=== PATIENT | female | born 1940 | race Caucasian/White ===

== ENCOUNTER 2018-05-21 12:11 | Outpatient (REF) | payer MEDICARE, OTHER, SELFPAY ==
[2018-05-21 21:43] LABS: ALT 19 U/L (12-78); Anion Gap 9.2 mmol/L (3-11); BUN 35 mg/dL (7-18); CO2 22.8 mmol/L (21.0-32.0); CREATININE 2.16 mg/dL (0.55-1.02); Chloride 107 mmol/L (98-107); Estimated GFR 22.23 (mL/min/1.73m2); Glucose 245 mg/dL (70-100); Potassium 5.1 mmol/L (3.5-5.1); Sodium 139 mmol/L (136-145)
== END 2018-05-21 12:31 ==
LOC: NCHCN 12:11
PROVIDERS: PCP Family Medicine; Visit Provider Family Medicine
DX: E78.5 Hyperlipidemia, unspecified (principal); I10 Essential (primary) hypertension
CPT/HCPCS: 80048; 84460

== ENCOUNTER 2018-11-17 21:41 | Outpatient (REF) | payer MEDICARE, OTHER, SELFPAY ==
[2018-11-17 22:42] LABS: Anion Gap 8.7 mmol/L (3-11); BUN 35 mg/dL (7-18); CO2 22.3 mmol/L (21.0-32.0); Calcium 10.8 mg/dL (8.5-10.1); Chloride 107 mmol/L (98-107); Glucose 230 mg/dL (70-100); PHOSPHORUS 3.2 mg/dL (2.6-4.7); Potassium 5.6 mmol/L (3.5-5.1); Sodium 138 mmol/L (136-145)
== END 2018-11-17 22:01 ==
LOC: NCHCN 21:41
PROVIDERS: PCP Family Medicine; Visit Provider Family Medicine
DX: N18.4 Chronic kidney disease, stage 4 (severe) (principal)
CPT/HCPCS: 80048; 84100

== ENCOUNTER 2019-06-11 22:17 | Outpatient (REF) | payer MEDICARE, OTHER, SELFPAY ==
[2019-06-11 21:45] LABS: Anion Gap 9.7 mmol/L (3-11); BUN 43 mg/dL (7-18); CO2 22.3 mmol/L (21.0-32.0); CREATININE 2.27 mg/dL (0.55-1.02); Calcium 10.5 mg/dL (8.5-10.1); Chloride 107 mmol/L (98-107); Estimated GFR 20.88 (mL/min/1.73m2); Glucose 214 mg/dL (74-106); PHOSPHORUS 3.8 mg/dL (2.6-4.7); Potassium 5.6 mmol/L (3.5-5.1); Sodium 139 mmol/L (136-145)
== END 2019-06-11 22:37 ==
LOC: NCHCN 22:17
PROVIDERS: PCP Family Medicine; Visit Provider Family Medicine
DX: E11.8 Type 2 diabetes mellitus with unspecified complications (principal); I10 Essential (primary) hypertension; N18.4 Chronic kidney disease, stage 4 (severe)
CPT/HCPCS: 80048; 84100

== ENCOUNTER 2019-11-19 14:17 | Outpatient (REF) | payer MEDICARE, OTHER, SELFPAY ==
[2019-11-19 21:34] LABS: ALT 26 U/L (14-59); AST 22 U/L (15-37); Alkaline Phosphatase 122 U/L (46-116); Anion Gap 9.4 mmol/L (3-11); BUN 33 mg/dL (7-18); Bilirubin, Total 0.3 mg/dL (0.2-1.0); CO2 21.6 mmol/L (21.0-32.0); CREATININE 1.87 mg/dL (0.55-1.02); Calcium 11.4 mg/dL (8.5-10.1); Calculated LDL 47 mg/dL (<100); Chloride 109 mmol/L (98-107); Cholesterol 144 mg/dL (<200); Estimated GFR 26.11 (mL/min/1.73m2); Glucose 169 mg/dL (74-106); HDL Cholesterol 46 mg/dL (40-60); Sodium 140 mmol/L (136-145); Total Protein 7.1 g/dL (6.4-8.2); Triglyceride 259 mg/dL (<150)
[2019-11-19 21:42] LABS: Potassium 6.3 mmol/L (3.5-5.1)
== END 2019-11-19 14:37 ==
LOC: NCHCN 14:17
PROVIDERS: PCP Family Medicine; Visit Provider Family Medicine
DX: N18.4 Chronic kidney disease, stage 4 (severe) (principal)
CPT/HCPCS: 80053; 80061

== ENCOUNTER 2019-11-25 22:24 | Outpatient (REF) | payer MEDICARE, OTHER, SELFPAY ==
[2019-11-25 20:48] LABS: Anion Gap 9.4 mmol/L (3-11); BUN 45 mg/dL (7-18); CO2 21.6 mmol/L (21.0-32.0); CREATININE 2.21 mg/dL (0.55-1.02); Calcium 11.4 mg/dL (8.5-10.1); Chloride 108 mmol/L (98-107); Estimated GFR 21.53 (mL/min/1.73m2); Glucose 85 mg/dL (74-106); Potassium 5.5 mmol/L (3.5-5.1); Sodium 139 mmol/L (136-145)
== END 2019-11-25 22:44 ==
LOC: NCHCN 22:24
PROVIDERS: PCP Family Medicine; Visit Provider Registered Nurse
DX: E87.5 Hyperkalemia (principal)
CPT/HCPCS: 80048

== ENCOUNTER 2020-01-04 08:29 | Outpatient (REF) | payer MEDICARE, OTHER, SELFPAY ==
[2020-01-04 22:05] LABS: Anion Gap 10.2 mmol/L (3-11); BUN 37 mg/dL (7-18); CO2 22.8 mmol/L (21.0-32.0); CREATININE 2.02 mg/dL (0.55-1.02); Calcium 10.9 mg/dL (8.5-10.1); Chloride 106 mmol/L (98-107); Estimated GFR 23.88 (mL/min/1.73m2); Glucose 231 mg/dL (74-106); Potassium 4.9 mmol/L (3.5-5.1); Sodium 139 mmol/L (136-145)
== END 2020-01-04 08:49 ==
LOC: NCHCN 08:29
PROVIDERS: PCP Family Medicine; Visit Provider Family Medicine
DX: E87.5 Hyperkalemia (principal); E11.8 Type 2 diabetes mellitus with unspecified complications; E83.52 Hypercalcemia; N18.4 Chronic kidney disease, stage 4 (severe)
CPT/HCPCS: 80048

== ENCOUNTER 2020-09-27 14:52 | Outpatient (REF) | payer MEDICARE, OTHER, SELFPAY ==
[2020-09-27 15:29] LABS: ALT 27 U/L (14-59); AST 20 U/L (15-37); Albumin 3.7 g/dL (3.4-5.0); Alkaline Phosphatase 181 U/L (46-116); Anion Gap 13.1 mmol/L (3-11); BUN 65 mg/dL (7-18); Bilirubin, Total 0.4 mg/dL (0.2-1.0); CO2 20.9 mmol/L (21.0-32.0); CREATININE 3.4 mg/dL (0.55-1.02); Calcium 10.5 mg/dL (8.5-10.1); Calculated LDL 53 mg/dL (<100); Chloride 105 mmol/L (98-107); Cholesterol 140 mg/dL (<200); Estimated GFR 13.06 (mL/min/1.73m2); Glucose 333 mg/dL (74-106); HDL Cholesterol 39 mg/dL (40-60); Potassium 5.6 mmol/L (3.5-5.1); Sodium 139 mmol/L (136-145); Total Protein 6.8 g/dL (6.4-8.2); Triglyceride 243 mg/dL (<150)
== END 2020-09-27 14:53 | disposition home or self-care (01) ==
LOC: NCHCN 14:52
PROVIDERS: PCP Family Medicine; Visit Provider Family Medicine
DX: E78.5 Hyperlipidemia, unspecified (principal); N18.4 Chronic kidney disease, stage 4 (severe); I10 Essential (primary) hypertension
CPT/HCPCS: 80053; 80061

== ENCOUNTER 2020-11-29 14:58 | Outpatient (REF) | payer MEDICARE, OTHER, SELFPAY ==
[2020-11-28 13:25] LABS: Anion Gap 11.8 mmol/L (3-11); BUN 41 mg/dL (7-18); CO2 20.2 mmol/L (21.0-32.0); CREATININE 2.6 mg/dL (0.55-1.02); Calcium 10.8 mg/dL (8.5-10.1); Chloride 108 mmol/L (98-107); Glucose 198 mg/dL (74-106); Sodium 140 mmol/L (136-145)
== END 2020-11-29 14:59 | disposition home or self-care (01) ==
LOC: NCHCN 14:58
PROVIDERS: PCP Family Medicine; Visit Provider Family Medicine
DX: E87.5 Hyperkalemia (principal)
CPT/HCPCS: 80048

== ENCOUNTER 2021-05-24 09:27 | Outpatient (REF) | payer MEDICARE, OTHER, SELFPAY ==
[2021-05-24 16:45] LABS: Anion Gap 10.1 mmol/L (3-11); BUN 49 mg/dL (7-18); CO2 20.9 mmol/L (21.0-32.0); CREATININE 2.5 mg/dL (0.55-1.02); Calcium 10.6 mg/dL (8.5-10.1); Chloride 106 mmol/L (98-107); Estimated GFR 18.63 (mL/min/1.73m2); Glucose 223 mg/dL (74-106); Potassium 4.8 mmol/L (3.5-5.1); Sodium 137 mmol/L (136-145)
== END 2021-05-24 09:28 | disposition home or self-care (01) ==
LOC: NCHCN 09:27
PROVIDERS: PCP Family Medicine; Visit Provider Family Medicine
DX: N18.4 Chronic kidney disease, stage 4 (severe) (principal)
CPT/HCPCS: 80048

== ENCOUNTER 2022-06-04 16:19 | Outpatient (REF) | payer MEDICARE, OTHER, SELFPAY ==
[2022-06-04 16:00] LABS: Anion Gap 8.9 mmol/L (3-11); BUN 30 mg/dL (7-18); CO2 21.1 mmol/L (21.0-32.0); CREATININE 2.4 mg/dL (0.55-1.02); Calcium 10.9 mg/dL (8.5-10.1); Chloride 108 mmol/L (98-107); Estimated GFR 19.92 (mL/min/1.73m2); Glucose 313 mg/dL (74-106); PHOSPHORUS 3.1 mg/dL (2.6-4.7); Potassium 5.6 mmol/L (3.5-5.1); Sodium 138 mmol/L (136-145)
== END 2022-06-04 16:20 | disposition home or self-care (01) ==
LOC: NCHCN 16:19
PROVIDERS: PCP Family Medicine; Visit Provider Family Medicine
DX: N18.4 Chronic kidney disease, stage 4 (severe) (principal)
CPT/HCPCS: 80048; 84100

== ENCOUNTER 2022-09-03 18:18 | Outpatient (REF) | payer MEDICARE, OTHER, SELFPAY ==
[2022-09-03 15:36] LABS: Anion Gap 11.5 mmol/L (3-11); BUN 44 mg/dL (7-18); CO2 20.5 mmol/L (21.0-32.0); CREATININE 2.5 mg/dL (0.55-1.02); Calcium 11.3 mg/dL (8.5-10.1); Chloride 106 mmol/L (98-107); Estimated GFR 18.97 (mL/min/1.73m2); Glucose 241 mg/dL (74-106); Potassium 5.4 mmol/L (3.5-5.1); Sodium 138 mmol/L (136-145)
== END 2022-09-03 18:19 | disposition home or self-care (01) ==
LOC: NCHCN 18:18
PROVIDERS: PCP Family Medicine; Visit Provider Family Medicine
DX: I10 Essential (primary) hypertension (principal); E11.8 Type 2 diabetes mellitus with unspecified complications; N18.4 Chronic kidney disease, stage 4 (severe)
CPT/HCPCS: 80048

== ENCOUNTER 2023-03-03 12:40 | Outpatient (REF) | payer MEDICARE, OTHER, SELFPAY ==
[2023-03-03 15:26] LABS: Anion Gap 11.3 mmol/L (3-11); BUN 45 mg/dL (7-18); CO2 20.7 mmol/L (21.0-32.0); CREATININE 2.6 mg/dL (0.55-1.02); Calcium 11.4 mg/dL (8.5-10.1); Calculated LDL 40 mg/dL (<100); Chloride 104 mmol/L (98-107); Cholesterol 125 mg/dL (<200); Estimated GFR 18.09 (mL/min/1.73m2); Glucose 220 mg/dL (74-106); HDL Cholesterol 53 mg/dL (40-60); Sodium 136 mmol/L (136-145); Triglyceride 160 mg/dL (<150)
[2023-03-03 15:50] LABS: Hemoglobin A1C 7.3 % (<5.7)
== END 2023-03-03 12:41 | disposition home or self-care (01) ==
LOC: LBN 12:40
PROVIDERS: PCP Family Medicine; Visit Provider Family Medicine
DX: E11.9 Type 2 diabetes mellitus without complications (principal); E78.5 Hyperlipidemia, unspecified; N18.30 Chronic kidney disease, stage 3 unspecified
CPT/HCPCS: 80048; 80061; 83036

== ENCOUNTER 2023-09-16 12:32 | Outpatient (REF) | payer MEDICARE, OTHER, SELFPAY ==
[2023-09-16 16:09] LABS: Hemoglobin A1C 7.3 % (<5.7)
[2023-09-16 16:13] LABS: Anion Gap 11.9 mmol/L (3-11); BUN 38 mg/dL (7-18); CO2 20.1 mmol/L (21.0-32.0); CREATININE 2.5 mg/dL (0.55-1.02); Calcium 10.7 mg/dL (8.5-10.1); Chloride 110 mmol/L (98-107); Estimated GFR 18.85 (mL/min/1.73m2); Glucose 111 mg/dL (74-106); Potassium 5.5 mmol/L (3.5-5.1); Sodium 142 mmol/L (136-145)
[2023-09-16 23:07] LABS: Parathyroid Hormone,Intact 639 pg/mL (19-88)
== END 2023-09-16 12:33 | disposition home or self-care (01) ==
LOC: NCHCN 12:32
PROVIDERS: PCP Family Medicine; Visit Provider Family Medicine
DX: E11.8 Type 2 diabetes mellitus with unspecified complications (principal)
CPT/HCPCS: 80048; 83036; 83970

== ENCOUNTER 2023-09-19 14:24 | Outpatient (REF) | payer MEDICARE, OTHER, SELFPAY ==
[2023-09-19 15:33] LABS: Vitamin D 25 Total 11.3 ng/mL (30-100)
[2023-09-19 16:00] LABS: PHOSPHORUS 3.2 mg/dL (2.6-4.7)
== END 2023-09-19 14:25 | disposition home or self-care (01) ==
LOC: NCHCN 14:24
PROVIDERS: PCP Family Medicine; Visit Provider Family Medicine
DX: N18.4 Chronic kidney disease, stage 4 (severe) (principal)
CPT/HCPCS: 82306; 84100

== ENCOUNTER 2023-11-17 13:44 | Outpatient (REF) | payer MEDICARE, OTHER, SELFPAY ==
[2023-11-17 17:18] LABS: Vitamin D 25 Total 38.2 ng/mL (30-100)
== END 2023-11-17 13:45 | disposition home or self-care (01) ==
LOC: NCHCN 13:44
PROVIDERS: PCP Family Medicine; Visit Provider Family Medicine
DX: E55.9 Vitamin D deficiency, unspecified (principal)
CPT/HCPCS: 82306

== ENCOUNTER 2024-06-09 16:00 | Outpatient (REF) | payer MEDICARE, OTHER, SELFPAY ==
[2024-06-09 21:24] LABS: PROTEIN 41.9 mg/dL (0.0-11.9)
[2024-06-09 21:28] LABS: Anion Gap 10.9 mmol/L (3-11); BUN 62 mg/dL (7-18); CO2 22.1 mmol/L (21.0-32.0); CREATININE 3.1 mg/dL (0.55-1.02); Chloride 109 mmol/L (98-107); Estimated GFR 14.47 (mL/min/1.73m2); Glucose 125 mg/dL (74-106); Potassium 5.5 mmol/L (3.5-5.1); Sodium 142 mmol/L (136-145); Uric Acid 8.7 mg/dL (2.6-6.0)
== END 2024-06-09 16:01 | disposition home or self-care (01) ==
LOC: NCHCN 16:00
PROVIDERS: PCP Family Medicine; Visit Provider Family Medicine
DX: E11.9 Type 2 diabetes mellitus without complications (principal); I10 Essential (primary) hypertension; M10.9 Gout, unspecified
CPT/HCPCS: 80048; 84156; 84550

== ENCOUNTER 2024-11-22 15:09 | Outpatient (REF) | payer MEDICARE, OTHER, SELFPAY ==
[2024-11-22 17:28] LABS: Albumin 3.8 g/dL (3.4-5.0); Anion Gap 13.5 mmol/L (3-11); BUN 47 mg/dL (7-18); CO2 19.5 mmol/L (21.0-32.0); Calcium 10.9 mg/dL (8.5-10.1); Chloride 106 mmol/L (98-107); Estimated GFR 15.68 (mL/min/1.73m2); Glucose 297 mg/dL (74-106); Potassium 5.0 mmol/L (3.5-5.1); Sodium 139 mmol/L (136-145)
== END 2024-11-22 15:10 | disposition home or self-care (01) ==
LOC: NCHCN 15:09
PROVIDERS: PCP Family Medicine; Visit Provider Family Medicine
DX: N18.5 Chronic kidney disease, stage 5 (principal)
CPT/HCPCS: 80069